=== PATIENT | female | born 1995 | race Caucasian/White ===

== ENCOUNTER 2019-10-15 03:27 | Emergency (ER) | payer OTHER ==
--- NOTE | 2019-10-15 03:29 | PDOC ---
History of Present Illness - General Chief Complaint: Bite Stated Complaint: INSECT BITES Time Seen by Provider: 10/15/19 03:28 - History of Present Illness Initial Comments: This 24-year-old woman with a history of autism is brought into the emergency room by her father with areas of swelling/erythema and increased warmth lateral malleoli area of bilateral ankles. Patient is nonverbal and the history is obtained exclusively from her father. Father states that he believes areas had insect bites a few days ago that subsequently became swollen and inflamed over the last 24 hours. No history of persistent scratching of the area by the patient. No previous history of cellulitis or enhanced reaction to insect bites. Father had his used [id number] hydrocortisone cream without significant change. No fevers/chills/lymphangitic streaking. New No known allergies Past History - Past Medical History Allergies/Adverse Reactions: Allergies Allergy/AdvReac Type Severity Reaction Status Date / Time No Known Allergies Allergy Unverified 10/15/19 03:28 Home Medications: Ambulatory Orders Cephalexin Monohydrate [Keflex -] 500 mg PO Q8H #21 capsule 10/15/19 levETIRAcetam [Levetiracetam] 100 mg PO BID 10/15/19 Review of Systems - Review of Systems Able to Perform ROS?: Yes Comments:: 12 point review of systems is negative except for what is noted in the history of present illness *Physical Exam - Physical Exam GENERAL: Adult female, awake and cooperative; nonverbal. Appears to be in no acute distress HEAD: Normal with no signs of trauma. EXTREMITIES: Bilateral ankles-3 cm x 2 cm mildly erythematous, mildly increased warmth to touch, nonfluctuant areas just distal to both lateral malleoli No skin breakage is seen clearly in any area of inflammation; no lymphangitic streaking bilateral distal aspects of the feet are moderately edematous without erythema, increased warmth or tenderness Remainder the extremity exam is normal NEUROLOGICAL: Cranial nerves II through XII grossly intact. Nonverbal. Moving all 4 extremities equally ED Progress Note - Progress Note Progress Note: This 24-year-old woman with a history of autism, nonverbal but cooperative is brought into the ER by her father with few day history of increasing edema and inflammation in bilateral feet, especially in the area around both lateral malleoli. Father believes that the swelling and inflammation began as insect bites but no clear wound breakage is evident. There is evidence of edema proximal to the inflamed area but no lymphangitic streaking or fluctuance noted. No history of previous cellulitis or resistant organism colonization/ infection Although the etiology of the patient's bilateral foot edema and inflammation around the lateral malleoli is unclear, will treat empirically for early cellulitis. Keflex 500 mg 3 times a day will be prescribed for 1 week. Father will attempt to keep the patient's feet elevated. The patient currently does not have a regular physician. Father states that it is "difficult" to find a physician who understands " problems" Referral information for Dr. Femi Crowley, pediatric neurology with expertise in epilepsy and interest in developmental neurology given to patient's father. Although the patient is an adult, Dr. Crowley may be able to refer the patient to an adult neurologist with interest in developmental/autism patients. Patient should be brought back to the emergency room if she has progression of the erythema/edema or she develops lymphangitic streaking/fever Discharge - Discharge Information Problems reviewed: Yes Clinical Impression/Diagnosis: Cellulitis Qualifiers: Site of cellulitis: extremity Site of cellulitis of extremity: lower extremity Laterality: unspecified laterality Qualified Code(s): L03.119 - Cellulitis of unspecified part of limb Condition: Stable Disposition: HOME - Additional Discharge Information Prescriptions: Cephalexin Monohydrate [Keflex -] 500 mg PO Q8H #21 capsule - Follow up/Referral - Patient Discharge Instructions Patient Printed Discharge Instructions: DI for Cellulitis -- Adult Additional Instructions: Keflex 500 mg 3 times a day for a week Continue Keppra as prescribed Elevate feet as best you can especially over the next few days Return if there is increase in swelling/redness or fever develops - Post Discharge Activity
[2019-10-15 03:45] VITALS: BP 125/87; PULSE 106; TEMP 97.6; BMI 34.2
== END 2019-10-15 04:06 | disposition home or self-care (01) ==
LOC: FER 03:27
DX: L03.116 Cellulitis of left lower limb (principal); L03.115 Cellulitis of right lower limb; F84.0 Autistic disorder
CPT/HCPCS: 99281-25

== ENCOUNTER 2019-10-20 03:25 | Emergency (ER) | payer OTHER ==
[2019-10-20 03:32] VITALS: BP 123/79; PULSE 74; BMI 34.4
--- NOTE | 2019-10-20 03:54 | PDOC ---
History of Present Illness - General Chief Complaint: Edema Stated Complaint: SWELLING TO BOTH FEET X 4 DAYS Time Seen by Provider: 10/20/19 03:48 History Source: Parent(s) Exam Limitations: Clinical Condition - History of Present Illness Initial Comments: 10/20/19 03:49 b/l swollen LEs on Kflex for bl cellulitis erythema has improved but swelling has worsened Occurred: reports: last week Past History - Past Medical History Allergies/Adverse Reactions: Allergies Allergy/AdvReac Type Severity Reaction Status Date / Time No Known Allergies Allergy Verified 10/20/19 03:27 Home Medications: Ambulatory Orders Cephalexin Monohydrate [Keflex -] 500 mg PO Q8H #21 capsule 10/15/19 levETIRAcetam [Levetiracetam] 100 mg PO BID 10/15/19 COPD: No Seizures: Yes - Immunization History Immunization Up to Date: Yes - Psycho Social/Smoking Cessation Hx Smoking History: Never smoked Have you smoked in the past 12 months: No Information on smoking cessation initiated: No Hx Alcohol Use: No Drug/Substance Use Hx: No Review of Systems - Review of Systems All Other Systems: Reviewed and Negative *Physical Exam - Vital Signs Last Vital Signs Temp Pulse Resp BP Pulse Ox 74 17 123/79 100 10/20/19 03:29 10/20/19 03:29 10/20/19 03:29 10/20/19 03:29 - Physical Exam General Appearance: Yes: Nourished Extremity: positive: Normal Capillary Refill, Pedal Edema, Swelling. negative: Coldness, Erythema Medical Decision Making - Medical Decision Making 10/20/19 03:53 bl le swelling ? related to cellulitis share decision making: prefer to do w/u for edema but given difficulties in testing for this patient, dad opted for symptomatic mgmt for now Discharge - Discharge Information Problems reviewed: Yes Clinical Impression/Diagnosis: Edema Qualifiers: Edema type: unspecified Qualified Code(s): R60.9 - Edema, unspecified Condition: Good Disposition: HOME - Follow up/Referral - Patient Discharge Instructions Patient Printed Discharge Instructions: DI for Peripheral Edema -- Bilateral - Post Discharge Activity
== END 2019-10-20 03:52 | disposition home or self-care (01) ==
LOC: FER 03:25
DX: R60.9 Edema, unspecified (principal); R56.9 Unspecified convulsions
CPT/HCPCS: 99281-25